=== PATIENT | female | born 1975 | race African-American/Black ===

== ENCOUNTER 2020-10-02 16:11 | Emergency (ER) | payer OTHER ==
[2020-10-02] MEDS ORDERED: PYRIDIUM100 M1 PO (16:43)
[2020-10-02] MEDS ORDERED: LEVOFLOXACIN750 MG PO (16:43)
[2020-10-02] MEDS ORDERED: VITAMIN D325 MC7 PO (16:44)
[2020-10-02] MEDS ORDERED: TEMOVATE15 GM TP (16:44)
[2020-10-02] MEDS ORDERED: CARBAMAZEPINE100 MG PO (16:44)
[2020-10-02] MEDS ORDERED: VOLTAREN GEL1% TP (16:45)
[2020-10-02] MEDS ORDERED: CYCLOBENZAPRINE10 M1 PO (16:45)
[2020-10-02] MEDS ORDERED: TRULICITY0.75 MG/0. SC (16:46)
[2020-10-02] MEDS ORDERED: JARDIANCE25 MG PO (16:46)
[2020-10-02] MEDS ORDERED: LUNESTA2 MG PO (16:46)
[2020-10-02] MEDS ORDERED: NOVOLOG FLEX100 U/ML SQ (16:47)
[2020-10-02] MEDS ORDERED: LEADER MELATONIN5 MG PO (16:48)
[2020-10-02] MEDS ORDERED: SINGULAIR PO (16:48)
[2020-10-02] MEDS ORDERED: LOPRESSOR 225 MG/TAB PO (16:48)
[2020-10-02] MEDS ORDERED: LANTUS SOLOS100 U/ML SQ (16:48)
[2020-10-02] MEDS ORDERED: NAPROSYN500 M1 PO (16:49)
[2020-10-02] MEDS ORDERED: TRIAMCINOLONE A15 G3 TP (16:49)
[2020-10-02] MEDS ORDERED: EFFEXOR XR150 M1 PO (16:50)
[2020-10-02 17:44] LABS: BASO # 0.02 (0.02-0.10); EOS # 0.23 (0.04-0.40); EOS % 4.5 % (1.0-5.0); HEMATOCRIT 41.2 % (37.0-47.0); HEMOGLOBIN 13.7 g/dL (12.5-16.0); LYMPH# 2.53 (1.50-4.00); MEAN CELL VOLUME 90 fl (78-100); MEAN CORPUSCULAR HEMOGLOBIN 30 pg (27-31); MEAN CORPUSCULAR HGB CONC 33 g/dL (33-37); NEU # 1.94 (1.40-6.50); PLATELET COUNT 379 K/mm3 (130-400); RED BLOOD COUNT 4.57 M/mm3 (4.10-5.30); RED CELL DISTRIBUTION WIDTH 13.4 % (11.5-14.5); WHITE BLOOD COUNT 5.1 K/mm3 (4.8-10.8)
[2020-10-02 17:49] LABS: POTASSIUM 3.5 mmol/L (3.5-5.1)
[2020-10-02 17:50] LABS: CALCIUM 8.8 mg/dL (8.3-10.5)
[2020-10-02 17:55] LABS: URINE APPEARANCE HAZY; URINE COLOR YELLOW
[2020-10-02 17:56] LABS: PH-URINE 5.5 (5.0 - 8.0); URINE BILIRUBIN NEGATIVE (NEGATIVE); URINE BLOOD 250 ery/uL (NEGATIVE); URINE KETONE NEGATIVE (NEGATIVE); URINE LEUKOCYTE ESTERASE 2+ (NEGATIVE); URINE NITRATE POSITIVE (NEGATIVE); URINE PROTEIN(semi-quant) 1+ mg/dL (NEGATIVE); URINE UROBILINOGEN NORMAL (NORMAL)
[2020-10-02] MEDS ORDERED: PERCOCET 325 MG1 TA2 PO (18:13)
[2020-10-02 18:44] VITALS: BP 134/76
== END 2020-10-02 18:33 | disposition home or self-care (01) ==
LOC: ED 16:11
PROVIDERS: Family Medicine
DX: N12 Tubulo-interstitial nephritis, not specified as acute or chronic (principal); E11.9 Type 2 diabetes mellitus without complications; Z79.4 Long term (current) use of insulin